=== PATIENT | female | born 1995 | race Caucasian/White ===

== ENCOUNTER 2017-02-17 17:14 | Emergency (ER) | payer MEDICAID ==
[~2017-02-17] VITALS: Ht 172.7 cm; Wt 128.1 kg
[2017-02-17 18:15] VITALS: BP 135/82
== END 2017-02-17 18:15 | disposition home or self-care (01) ==
LOC: ED 17:14
DX: M25.812 Other specified joint disorders, left shoulder (principal)
CPT/HCPCS: J1885